=== PATIENT | male | born 1980 | race Caucasian/White ===

== ENCOUNTER 2018-03-21 22:05 | Emergency (ER) | payer MEDICARE, SELFPAY ==
[2018-03-21 22:05] VITALS: BP 139/72; PULSE 82; RESP 14; TEMP 37; O2SAT 97; BMI 37.0
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
--- NOTE | 2018-03-21 22:35 | ED.DEP ---
ED Disposition - Plan for ED Patient: Disposition: Home or Assisted Living Chief Complaint: Upper Extremity Injury Instructions: ED Cervical Radiculopathy Prescriptions: Naproxen [Naprosyn] 500 mg PO BID PRN #20 tab Prednisone [Deltasone] 40 mg PO DAILY #8 tab Referrals: [facility],Out of [Primary Care Provider] -
[2018-03-21] MEDS: predniSONE 20 MG Tablet 40 MG PO (22:41)
[2018-03-21] MEDS: oxyCODONE 5 MG Tablet PO (22:41)
[2018-03-21 22:51] VITALS: BP 145/78; PULSE 71; RESP 17; TEMP 37; O2SAT 96
== END 2018-03-21 22:54 | disposition home or self-care (01) ==
LOC: ED 22:49
PROVIDERS: Emergency Provider Emergency Medicine; Family Provider Family Medicine; PCP Family Medicine
DX: M54.12 Radiculopathy, cervical region (principal); J45.909 Unspecified asthma, uncomplicated; Z72.0 Tobacco use; Z86.14 Personal history of Methicillin resistant Staphylococcus aureus infection
CPT/HCPCS: 99283